=== PATIENT | female | born 1945 ===

== ENCOUNTER 2021-10-01 08:15 | Inpatient (IN) | payer OTHER ==
[2021-10-02] MEDS ORDERED: FARXIGA10 MG PO (10:59)
[2021-10-02] MEDS ORDERED: FEOSOL325 MG PO (11:00)
[2021-10-02] MEDS ORDERED: MEMANTINE HCL E28 MG PO (11:00)
[2021-10-02] MEDS ORDERED: ATORVASTATIN CA10 MG PO (11:01)
[2021-10-02] MEDS ORDERED: LANTU (11:01)
[2021-10-02] MEDS ORDERED: QUET PO (11:02)
[2021-10-02] MEDS ORDERED: ENALAPRIL MALEA10 MG PO (11:02)
[2021-10-02] MEDS ORDERED: TENORMIN25 MG PO (11:02)
[2021-10-02] MEDS ORDERED: LEVO-T200 MCG PO (11:03)
[2021-10-21] MEDS ORDERED: QUETIAPINE FUM100 MG PO (08:11)
== END 2021-10-21 19:43 | disposition home or self-care (01) | DRG 627 ==
LOC: ADM 08:15 → CIR.AMB 10-06 07:00 → SURH 10-20 05:50 → EDSTATUS 10-20 08:15 → CIR.AMB 10-20 08:15 → SURH 10-21 19:43
PROVIDERS: ADMIT Otolaryngology; ATTEND Otolaryngology
PROC: 07T10ZZ Resection of Right Neck Lymphatic, Open Approach (ICD-10-PCS; 2021-10-20)
PROC: 0GTH0ZZ Resection of Right Thyroid Gland Lobe, Open Approach (ICD-10-PCS; principal; 2021-10-20 15:15)
DX: C73 Malignant neoplasm of thyroid gland (principal); Z20.822 Contact with and (suspected) exposure to COVID-19